=== PATIENT | female | born 1960 | race Caucasian/White ===

== ENCOUNTER 2016-04-03 03:45 | Inpatient (IN) | payer OTHER ==
[~2016-04-03] VITALS: Ht 162.6 cm; Wt 93.9 kg
[~2016-04-03 03:45] MED LIST: ACCUPRIL40 M1 PO; ASPIRIN EC81 M1 PO; CLARITIN10 M1 PO; DDAVP0.2 MG PO; DOMPERIDONE PO; GABAPENTIN300 M2 PO; LEXAPRO20 M1 PO; OMEPRAZOLE40 M1 PO; PRAVACHOL40 M1 PO; REQUIP0.25 MG PO; TOPAMAX100 M1 PO; TRAZODONE HCL50 M1 PO; TROSPIUM CHLORI20 M1 PO; VICTOZA 2-0.6 MG/0.1 SC; ZOFRAN4 M2 PO
--- NOTE | 2016-04-03 11:16 | Admission Core Measures ---
Admission Meds I reviewed the following Meds: Current Medications Sig/Carmelo Start time Last Medication Dose Stop Time Status Admin Acetaminophen 975 MG ONCE 04/03 0000 NR (Tylenol) 04/03 2358 Cefazolin Sodium 2,000 MG ONCE 04/03 0000 NR (Kefzol-Ancef Inj) 04/03 235 Desmopressin Acetate 0.2 MG DAILY 04/03 1000 AC (Ddavp 0.1MG Tab) Escitalopram Oxalate 20 MG QPM 04/03 2200 AC (Lexapro) Gabapentin 300 MG 1200 04/03 1200 AC (Neurontin) Gabapentin 600 MG BID 04/03 1000 AC (Neurontin) Lisinopril 40 MG DAILY 04/03 1000 AC (Prinivil) Loratadine 10 MG DAILY 04/03 1000 AC (Claritin) Omeprazole 40 MG DAILY AC 04/04 0700 AC (Prilosec) Oxycodone HCl 10 MG ONCE 04/03 0000 NR (Roxicodone) 04/03 2358 Pravastatin Sodium 40 MG 1700 04/03 1700 AC (Pravachol) Ropinirole HCl 0.25 MG DAILY 04/03 1000 AC (Requip 0.5MG) Ropivacaine 500 ML ONCE ONE 04/03 1130 AC (NAROPIN) 04/05 1329 ON-Q Ball 1 BAG Topiramate 150 MG BID 04/03 1000 AC (Topamax) Trazodone HCl 50 MG QPM 04/03 2200 AC (Desyrel) Acute Coronary Syndrome Inclusion Criteria ACS Diagnosis No Inpatient Core Measures LDL Reminder: If No, please order W/I first 24hr of stay Congestive Heart Failure Inclusion Criteria CHF Diagnosis No Cerebrovascular accident Inclusion Criteria CVA/TIA Diagnosis No Inpatient Core Measures Bedside Swallow Eval Reminder: If BSE failed, place ST order Antithrombotic Reminder: Order Antithrombotic Medication by end of day 2 Antithrombotic Reminder: Document Reason Antithrombotic Not ordered by end of day 2 AFIB/Flutter Reminder: If Present, add to problem list AFIB/Flutter Reminder: Order Anticoag Medication for pts with AFIB/Flutter Atherosclerosis Reminder: If Present, add to problem list LDL Reminder: If No, please order W/I first 24hr of stay PT Order Reminder: If No, please order Venous thromboembolism Inpatient Core Measures VTE Risk Factors: Age > 40, Surgery VTE Prophylaxis Ordered Inpt Mech & Pharm No Mech VTE prophylaxis d/t No contraindications No VTE Pharm Prophylaxis d/t No contraindications Inclusion Criteria - Per Current guidelines, there needs to be overlap - treatment for the first 5 days of Warfarin therapy. - Parenteral Anticoagulation (IV or SC) needs to be - given along with Warfarin therapy. VTE Diagnosis No VTE Type NONE VTE Confirmed by (Test) NONE Problem List As ranked by this Provider includes Assessment & Plan 1. Unilateral primary osteoarthritis, right knee HOME MEDS Home Med List Desmopressin Acetate (Ddavp) 0.2 MG TABLET 1 TAB PO DAILY BLADDER (Reported) [DOMPERIDONE] 10 MG PO 6XDAILY BLADDER (Reported) Escitalopram Oxalate (Lexapro) 20 MG TABLET 1 TAB PO QPM DEPRESSION (Reported ) Gabapentin 300 MG CAPSULE 2 CAP PO BID NEUROPATHY (Reported) Gabapentin 300 MG CAPSULE 1 CAP PO 1200 NEUROPATHY (Reported) Liraglutide (Victoza 2-Eduard) 0.6 MG/0.1 ML (18 MG/3 ML) PEN.INJCTR 1.2 MG SC QPM DM (Reported) Loratadine (Claritin) 10 MG TABLET 1 TAB PO DAILY ALLERGIES (Reported) Omeprazole 40 MG CAPSULE.DR 1 CAP PO DAILY GERD (Reported) Ondansetron HCl (Zofran) 4 MG TABLET 1 TAB PO PRN NAUSEA (Reported) Pravastatin Sodium (Pravachol) 40 MG TABLET 1 TAB PO DAILY CHOLESTEROL ( Reported) Quinapril HCl (Accupril) 40 MG TABLET 1 TAB PO DAILY BP (Reported) Ropinirole Hydrochloride (Requip) 0.25 MG TABLET 1 TAB PO DAILY LEGS ( Reported) Topiramate (Topamax) 100 MG TABLET 1.5 TAB PO BID UNKNOWN (Reported) Trazodone HCl 50 MG TABLET 1 TAB PO QPM SLEEP (Reported) Trospium Chloride 20 MG TABLET 1 TAB PO DAILY BLADDER (Reported) Discontinued Medications Aspirin (Ecotrin*) 81 MG TABLET.DR 1 TAB PO DAILY HEART/BLOOD (Reported) Discontinued reason: Changed Dose
[2016-04-03] MEDS ORDERED: DILAUDID4 M1 PO (11:21)
[2016-04-03] MEDS ORDERED: ASPIRIN325 M2 PO (11:21)
[2016-04-03] MEDS ORDERED: COLACE100 M1 PO (11:21)
[2016-04-03] MEDS ORDERED: MS CONTIN15 M2 PO (11:21)
[2016-04-03] MEDS ORDERED: MIRALAX17 G1 PO (11:21)
--- NOTE | 2016-04-03 11:24 | Patient Discharge Instructions ---
Discharge Instructions General Discharge Information You were seen/treated for: Right knee pain You had these procedures: Right total knee replacement Watch for these problems: Increasing pain, redness, warmth, swelling. Drainage of any type from incision. Inability to bear weight on right leg. Fever greater than 101.5. Do not soak the wound: Yes No bath, but you may shower: Yes Special Instructions: Incision: Dry dressing. May shower. No baths. No ointments of any kind. Ice as needed. Bowel regimen: Colace and/or Miralax. Weight-bearing as tolerated Follow-up with Dr. Brink in 6 weeks. Call office for fevers greater than 101.5, excessive drainage or inability to bear weight on operative extremity. Visiting nurse will change dressing. Diet Continue normal diet: Yes Recommended Diet: Heart Healthy Additional DIET Information: Advance as tolerated Activity Full Activity/No Limits: No Activity Self Limited: Yes Pounds, do NOT lift more than: 10 Additional ACTIVITY Info: Weight-bear as tolerated on right leg Acute Coronary Syndrome Inclusion Criteria At DC or during hospital stay patient has or had the following: ACS DIAGNOSIS No Discharge Core Measures Meds if any: Prescribed or Continued at Discharge Meds if any: NOT Prescribed or Continued at Discharge Congestive Heart Failure Inclusion Criteria At DC or during hospital stay patient has or had the following: CHF DIAGNOSIS No Discharge Core Measures Meds if any: Prescribed or Continued at Discharge Meds if any: NOT Prescribed or Continued at Discharge Cerebrovascular accident Inclusion Criteria At DC or during hospital stay patient has or had the following: CVA/TIA Diagnosis No Discharge Core Measures Meds if any: Prescribed or Continued at Discharge Meds if any: NOT Prescribed or Continued at Discharge Venous thromboembolism Inclusion Criteria VTE Diagnosis No VTE Type NONE VTE Confirmed by (Test) NONE Discharge Core Measures - Per Current guidelines, there needs to be overlap - treatment for the first 5 days of Warfarin therapy. - If discharged on Warfarin prior to 5 days of - overlap therapy, the patient will need to be - assessed for post discharge needs including - *Post discharge parental anticoagulation - *Warfarin and/or parental anticoagulation education - *Follow up date to check INR post discharge At least 5 days overlap therapy as Inpatient No Meds if any: Prescribed or Continued at Discharge Note: Overlap Therapy is Warfarin and Anticoagulant Meds if any: NOT Prescribed or Continued at Discharge
--- NOTE | 2016-04-03 11:26 | Surgical Discharge Summary ---
Visit Information Visit Dates Admission Date: 04/03/16 Discharge Date: 04/06/16 History of Present Illness Chief Complaint: Right knee pain Medical History Isolation History: Standard Surgical History Pertinent Surgical History: non-contributory Review of Systems: See H&P Hospital Course Course Attending Physician: ADINA MOORE MD Primary Care Physician: PATIENT HAS NO PRIMARY CARE DR Hospital Course: Patient was admitted to the hospital on 04/03/2016 for an elective right total knee replacement. She tolerated the procedure well. She was transferred to a general surgical floor. Her diet was advanced and tolerated. Her vital signs were stable and within normal limits. Her pain was well controlled. She was evaluated and treated by physical therapy. She voided spontaneously. She was deemed appropriate for discharge. Allergies: Coded Allergies: pentazocine (From TALWIN) (Severe, ANAPHYLAXIS 04/03/16) prochlorperazine (From COMPAZINE) (Severe, ANAPHYLAXIS 04/03/16) Disposition Summary Disposition Principal Diagnosis: Right knee unilateral primary osteoarthritis Additional Diagnosis: None Discharge Disposition: home health services Discharge Instructions General Discharge Information Code Status: Full Code Patient's Diet: Heart healthy, advance as tolerated Patient's Activity: Weight-bear as tolerated on right leg Follow-Up Instructions/Appts: Incision: Dry dressing. May shower. No baths. No ointments of any kind. Ice as needed. Bowel regimen: Colace and or MiraLAX Weight-bearing as tolerated Follow-up with Dr. Moore in 6 weeks. Call office for fevers greater than 101.5, excessive drainage or inability to bear weight on operative extremity. Visiting nurse will change dressing. Medications at Discharge Discharge Medications: Stop taking the following medications: Aspirin (Ecotrin*) 81 MG TABLET.DR HARDY DAILY Continue taking these medications: Quinapril HCl (Accupril) 40 MG TABLET 1 Tablet ORAL DAILY Comments: DOCUMENTED PER CMR DURING PRE-SX INTERVIEW Pravastatin Sodium (Pravachol) 40 MG TABLET 1 Tablet ORAL DAILY Comments: DOCUMENTED PER CMR DURING PRE-SX INTERVIEW Trazodone HCl (Trazodone HCl) 50 MG TABLET 1 Tablet ORAL Every night Comments: DOCUMENTED PER CMR DURING PRE-SX INTERVIEW Escitalopram Oxalate (Lexapro) 20 MG TABLET 1 Tablet ORAL Every night Comments: DOCUMENTED PER CMR DURING PRE-SX INTERVIEW Topiramate (Topamax) 100 MG TABLET 1.5 Tablet ORAL TWICE DAILY Comments: DOCUMENTED PER CMR DURING PRE-SX INTERVIEW [DOMPERIDONE] 10 Milligram ORAL 6XDAILY Comments: DOCUMENTED PER CMR DURING PRE-SX INTERVIEW Desmopressin Acetate (Ddavp) 0.2 MG TABLET 1 Tablet ORAL DAILY Comments: DOCUMENTED PER CMR DURING PRE-SX INTERVIEW Trospium Chloride (Trospium Chloride) 20 MG TABLET 1 Tablet ORAL DAILY Comments: DOCUMENTED PER CMR DURING PRE-SX INTERVIEW Omeprazole (Omeprazole) 40 MG CAPSULE.DR 1 Capsule ORAL DAILY Comments: DOCUMENTED PER CMR DURING PRE-SX INTERVIEW Ropinirole Hydrochloride (Requip) 0.25 MG TABLET 1 Tablet ORAL DAILY Comments: DOCUMENTED PER CMR DURING PRE-SX INTERVIEW Gabapentin (Gabapentin) 300 MG CAPSULE 2 Capsule ORAL TWICE DAILY Comments: DOCUMENTED PER CMR DURING PRE-SX INTERVIEW 2 IN AM/ 1 NOON/ 2 AT NIGHT Gabapentin (Gabapentin) 300 MG CAPSULE 1 Capsule ORAL 1200 Comments: DOCUMENTED PER CMR DURING PRE-SX INTERVIEW Loratadine (Claritin) 10 MG TABLET 1 Tablet ORAL DAILY Comments: DOCUMENTED PER CMR DURING PRE-SX INTERVIEW Liraglutide (Victoza 2-Eduard) 0.6 MG/0.1 ML (18 MG/3 ML) PEN.INJCTR 1.2 Milligram Inject into fatty tissue Every night Comments: DOCUMENTED PER CMR DURING PRE-SX INTERVIEW Ondansetron HCl (Zofran) 4 MG TABLET 1 Tablet ORAL as needed for NAUSEA Comments: DOCUMENTED PER CMR DURING PRE-SX INTERVIEW Start taking the following new medications: Aspirin (Aspirin*) 325 MG TABLET 1 Tablet ORAL TWICE DAILY Qty = 60 No Refills Docusate Sodium (Colace) 100 MG CAPSULE 1 Capsule ORAL TWICE DAILY Qty = 14 No Refills Polyethylene Glycol 3350 (Miralax) 17 GRAM POWD.PACK 1 Packet ORAL DAILY Qty = 7 No Refills Instructions: dissolve in water, DISCONTINUE USE IF YOU DEVELOP LOOSE STOOL OR DIARRHEA Hydromorphone HCl (Dilaudid) 2 MG TABLET 1-2 Tablet ORAL Q4-6HR as needed for PAIN Qty = 36 No Refills dissolve in water, DISCONTINUE USE IF YOU DEVELOP LOOSE STOOL OR DIARRHEA
--- NOTE | 2016-04-03 11:57 | PN- Orthopedic ---
Subjective Subjective: The patient was seen postoperatively. She denies any pain at the current time and has no other complaints. She denies any chest pain, difficulty breathing, or palpitations. Objective Vital Signs and I&Os Vital signs: Blood pressure 110/67, pulse 70, temperature 97.9, O2 sats are 97% on 2 L via nasal cannula. I's and O's: 1500 ML's in of lactated ringer/75 ML's out of urine via [place] catheter/Suretrans drain 45 ML's/EBL less than 50 Physical Exam: Gen.: Alert and in no obvious distress Skin: Warm and dry Cardiac: S1-S2 regular Pulmonary: Bilateral breath sounds are equal and decreased at bases Extremities: Bilateral lower extremities are warm without calf tenderness or significant edema. Gross motor and sensory are intact. Right knee surgical dressing is clean, dry, and intact without signs of infection. There is a Suretrans drain 1 holding suction with sanguinous drainage and bulb. There is an On-Q pain pump in place Assessment/Plan Assessment/Plan Assessment: 55-year-old female status post right total knee arthroplasty. Postoperative the patient is progressing as expected and her pain is under adequate control. Plan: Out of bed with physical therapy patient is weightbearing as tolerated Strict I's and O's Follow-up morning labs Start aspirin 305 mg by mouth twice a day tonight Keep Suretrans drain to self suction Advance diet as tolerated GI and DVT prophylaxis Resume home medications Monitor for postoperative void Core Measures/Miscellaneous Venous Thromboembolism VTE Risk Factors: Age > 40, Surgery VTE Contraindications: No Contraindications VTE Prophylaxis Ordered Inpt: Mech & Pharm VTE Diagnosis: No VTE Type: NONE VTE Confirmed by (Test): NONE Beta Wing Is Beta Wing a Home Med? No Antibiotics Is Patient on Antibiotics? Yes If Yes: prophylaxis
[2016-04-03] MEDS ORDERED: DILAUDID2 M1 PO (12:48)
[2016-04-03 13:00] VITALS: BP 118/78
--- NOTE | 2016-04-03 14:29 | Operative Report ---
Operative/Inv Procedure Report Surgery Date: 04/03/16 Name of Procedure: Right total knee replacement Pre-Operative Diagnosis: Primary right knee DJD Post-Operative Diagnosis: Same Estimated Blood Loss: 50ml to 100ml Surgeon/Crap Game Box Person: TERESA BAKER,ADINA Torres Anesthesia: block Operative/Procedure Note Note: Description of Procedure: The patient was taken to the operating room and positively identified. After induction of spinal anesthesia and administration of appropriate pre-operative antibiotics, the patient was positioned supine on the operating room table and all bony prominences were well padded. A well-padded pneumatic tourniquet was placed on the right upper thigh. After performing a surgical timeout, the right lower extremity was prepped and draped in the usual sterile fashion. After exsanguination with Esmarch the tourniquet was inflated to 250mm of mercury. A standard medial parapatellar approach was made to the knee. This was carried down through skin and subcutaneous tissue to the level of the fascia. Meticulous hemostasis was maintained with Bovie electrocautery. The extensor mechanism and patellar retinaculum were opened sharply and the patella was everted. The infrapatellar fat was resected in order to improve exposure. Osteophytes were trimmed from the patella and femoral condyles and the patella was re-everted and tucked laterally. A medial release was performed and the cruciate ligaments were resected. The tibia was then subluxed anteriorly. Utilizing the appropriate extra-medullary guide, the proximal tibia was trimmed perpendicular to the long axis of the tibial shaft. Attention was then turned to the femur. After opening the medullary canal, the distal femoral cut was made in 6 degrees of valgus utilizing the appropriate intra-medullary guide. The extension gap was checked and found to be appropriate. The femur was then sized and the remainder of the femoral cuts were made with a size 3 4-in-1 femoral cutting guide. The flexion gap was checked and found to be symmetric and appropriate. The knee was then trialed with a size 3 femoral component, a size 3 tibial component and a size 11 mm polyethylene insert. The patella was not resurfaced due to its excellent preoperative condition. This yielded excellent range of motion, stability and patellar tracking. All trial components were removed and the knee was copiously irrigated with sterile saline. All components were cemented into place with Sasha Simplex cement. All the components were of the Sasha Triathlon knee system of the above stated sizes. The knee was again irrigated after cementation. The extensor mechanism and patellar retinaculum were repaired using interrupted #1 vicryl suture. The skin was re-approximated with 2-0 vicryl and closed with kalin. A sterile dressing was applied, the tourniquet was deflated, the patient was awakened and taken to the recovery room in satisfactory condition.
[2016-04-03 15:00] VITALS: BP 120/68
[2016-04-03 17:04] VITALS: BP 120/82
[2016-04-03 19:35] VITALS: BP 108/68
[2016-04-03 22:54] VITALS: BP 104/60
[2016-04-04 03:11] VITALS: BP 100/50
[2016-04-04 07:33] VITALS: BP 100/60
--- NOTE | 2016-04-04 08:31 | PN- Orthopedic ---
Subjective Subjective: NAEO. Patient had increased pain around 23:00 after spinal anesthesia metabolized. Currently pain is "15/10". Denies numbness/tingling in RLE. Tolerating diet without n/v. +flatus, no BM. Ballard catheter in place. Denies CP/SOB. Objective Vital Signs and I&Os Vital Signs Date Time Temp Pulse Resp B/P Pulse O2 O2 Flow FiO2 Ox Delivery Rate 04/04 0817 100/60 04/04 0733 98.6 73 20 100/60 95 Room Air 04/04 0311 98.7 73 20 100/50 94 Room Air 04/03 2254 98.9 70 20 104/60 94 Room Air 04/03 1935 97.7 73 20 108/68 97 Room Air 04/03 1704 98.6 73 20 120/82 100 Room Air 04/03 1500 98.7 74 18 120/68 97 Room Air 04/03 1300 97.6 69 18 118/78 99 Nasal 3.0L Cannula Intake & Output 04/04 1600 04/04 0800 04/04 0000 04/03 1600 04/03 0800 04/03 0000 Intake Total 200 200 Output Total 590 1430 Balance -390 -1230 Intake, IV 100 100 Intake, Oral 100 100 Output, 140 180 Drainage Output, Urine 450 1250 Patient 207 lb Weight Physical Exam: General: NAD, comfortable, A&Ox3 Chest: CTAB. RRR. Abdomen: soft, nontender, nondistended. Ext: Right knee dressing c/d/i. 2 pillows underneath knee. hemovac drain in place. On q pump in place. No calve swelling/TTP, neurovascularly intact bilateral lower extremities Current Medications: Current Medications Sig/Carmelo Start time Last Medication Dose Route Stop Time Status Admin Acetaminophen 650 MG Q4P PRN 04/03 1300 AC PO Acetaminophen 975 MG ONCE 04/03 0000 DC PO 04/03 2359 Aspirin Buffered 325 MG BID 04/03 2200 AC 04/04 PO 0818 Cefazolin Sodium 2 GM IQ8 04/03 1600 DC 04/04 N/A 1 UNIT IV 04/04 0029 0100 Cefazolin Sodium 2,000 MG ONCE 04/03 0000 DC IV 04/03 2359 Desmopressin Acetate 0.2 MG DAILY 04/04 1000 AC PO Desmopressin Acetate 0.2 MG DAILY 04/03 1000 DC PO Dextrose/Sodium 1,000 ML .[id number] 04/03 1300 DC 04/03 Chloride IV 1438 Diphenhydramine HCl 50 MG .STK-MED ONE 04/03 1552 DC IM 04/03 1553 Diphenhydramine HCl 12.5 MG ONCE ONE 04/03 1545 DC 04/03 PO 04/03 1546 1707 Diphenhydramine HCl 25 MG Q6P PRN 04/03 1315 AC 04/03 PO 2309 Docusate Sodium 100 MG BID 04/03 2200 AC 04/04 PO 0819 Escitalopram Oxalate 20 MG QPM 04/03 2200 DC PO Escitalopram Oxalate 20 MG QPM 04/03 2200 AC 04/03 PO 2057 Gabapentin 300 MG 1200 04/04 1200 AC PO Gabapentin 600 MG BID 04/03 2200 AC 04/04 PO 0818 Gabapentin 300 MG 1200 04/03 1200 DC PO Gabapentin 600 MG BID 04/03 1000 DC PO Hydromorphone HCl 1 MG Q3P PRN 04/04 0830 UNVr IV Hydromorphone HCl 2 MG Q4P PRN 04/03 1300 AC PO Hydromorphone HCl 4 MG Q4P PRN 04/03 1300 AC 04/04 PO 0816 Insulin Human Regular 0 TIDAC/HS 04/03 1200 AC 04/04 SC 0819 Ketorolac 30 MG Q6P PRN 04/04 0830 UNVr Tromethamine IV 04/09 0831 Lisinopril 40 MG DAILY 04/04 1000 AC 04/04 PO 0817 Lisinopril 40 MG DAILY 04/03 1000 DC PO Loratadine 10 MG DAILY 04/04 1000 AC 04/04 PO 0819 Loratadine 10 MG DAILY 04/03 1000 DC PO Metoclopramide HCl 10 MG Q6P PRN 04/03 1300 AC IV Morphine Sulfate 2 MG Q2P PRN 04/03 1300 DC 04/04 IV 0603 Morphine Sulfate 10 MG .STK-MED ONE 04/03 0839 DC IV 04/03 0840 Omeprazole 40 MG DAILY AC 04/04 0700 DC PO Omeprazole 40 MG DAILY AC 04/04 0700 AC 04/04 PO 0605 Ondansetron HCl 4 MG Q6P PRN 04/03 1300 AC IV Oxycodone HCl 10 MG ONCE 04/03 0000 DC PO 04/03 2359 Polyethylene Glycol 17 GM DAILY 04/04 1000 AC 04/04 PO 0818 Pravastatin Sodium 40 MG 1700 04/03 1700 DC PO Pravastatin Sodium 40 MG 1700 04/03 1700 AC 04/03 PO 1709 Ropinirole HCl 0.25 MG DAILY 04/04 1000 AC 04/04 PO 0817 Ropinirole HCl 0.25 MG DAILY 04/03 1000 DC PO Ropivacaine 500 ML ONCE ONE 04/03 1130 AC 04/03 ON-Q Ball 1 BAG INJ 04/05 1329 1440 Topiramate 150 MG BID 04/03 2200 AC 04/03 PO 2057 Topiramate 150 MG BID 04/03 1000 DC PO Trazodone HCl 50 MG QPM 04/03 2200 DC PO Trazodone HCl 50 MG QPM 04/03 2200 AC 04/03 PO 2057 Results Last 48 Hours of Labs: Laboratory Tests 04/04 0750 Chemistry Sodium Pending Potassium Pending Chloride Pending Carbon Dioxide Pending Anion Gap Pending BUN Pending Creatinine Pending BUN/Creatinine Ratio Pending Hematology CBC w Diff Pending WBC Pending RBC Pending Hgb Pending Hct Pending MCV Pending MCH Pending RDW Pending Plt Count Pending MPV Pending PUBS MCHC Pending Assessment/Plan Assessment/Plan 55yo F POD#1 s/p right total knee replacement. Patient does not have good pain control at this time. Otherwise AVSS, patient stable. - DC ballard - optimize pain control - PRN zofran - Bowel regimen - DC IVF - Hemovac dc'd bedside, tolerated well - ASA 325mg PO BID - I/O's - ALPS and TEDS - OOB and ambulate with PT, WBAT - will d/w attending Core Measures/Miscellaneous Venous Thromboembolism VTE Risk Factors: Age > 40, Surgery VTE Contraindications: No Contraindications VTE Prophylaxis Ordered Inpt: Mech & Pharm VTE Diagnosis: No VTE Type: NONE VTE Confirmed by (Test): NONE Beta Wing Is Beta Wing a Home Med? No Antibiotics Is Patient on Antibiotics? No
[2016-04-04 09:02] LABS: ABSOLUTE BASOPHIL COUNT 0 /CUMM (0.0-0.2); ABSOLUTE EOSINOPHIL COUNT 0 /CUMM (0.0-0.7); ABSOLUTE GRANULOCYTE CT 4.4 /CUMM (1.4-6.5); ABSOLUTE MONOCYTE COUNT 0.7 /CUMM (0.10-0.60); BASOPHIL % 0.2 % (0.0-2.0); EOSINOPHIL % 0.5 % (0-5); GRANULOCYTE % 71.9 % (42.2-75.2); HEMATOCRIT 37.1 % (37-47); MEAN CORPUSCULAR HGB 32.5 PG (27.0-31.0); MEAN CORPUSCULAR HGB CONC 34.4 G/DL (33.0-37.0); MEAN CORPUSCULAR VOLUME 94.5 FL (81.0-99.0); MEAN PLATELET VOLUME 8.2 FL (7.4-10.4); PLATELET COUNT 187 /CUMM (130-400); RBC DISTRIBUTION WIDTH 13.7 % (11.5-14.5); RED BLOOD CELL CT 3.92 /CUMM (4.20-5.40); WHITE BLOOD CELL COUNT 6.1 /CUMM (4.8-10.8)
[2016-04-04 14:48] VITALS: BP 104/60
[2016-04-04 23:04] VITALS: BP 112/68
[2016-04-05 07:06] VITALS: BP 112/60
--- NOTE | 2016-04-05 09:41 | PN- Orthopedic ---
Subjective Subjective: POD#2 S/P RIGHT TKA NO MAJOR COMPLAINTS DENEIS CP, SOB, NO N+V WITH DIET TOLERATING DIET NO BM Objective Vital Signs and I&Os Vital Signs Date Time Temp Pulse Resp B/P Pulse O2 O2 Flow FiO2 Ox Delivery Rate 01/06 0806 112/60 /06 0706 100.2 75 20 112/60 90 Room Air / 2304 100.1 84 20 112/68 95 Room Air 04/04 1448 98.8 85 20 104/60 95 Room Air Intake & Output / 1600 01/ 0800 / 0000 / 1600 04/04 0800 04/04 0000 Intake Total 100 140 600 200 200 Output Total 650 674 248 8917 Balance -550 140 125 -390 -1230 Intake, IV 40 0 100 100 Intake, Oral 100 100 600 100 100 Number 0 Bowel Movements Output, 140 180 Drainage Output, Urine 650 384 269 5598 Physical Exam: CV: RRR LUNGS: CLEAR ABD: +BS, NT/ND EXT; DRSG CHANGED, WOUND C/D/I NO CALF TENDERNESS BILAT DISTAL CMS INTACT Assessment/Plan Assessment/Plan ORTHO STABLE PLAN OOB WITH PT/STAIRS HOME D/C PLANNING Core Measures/Miscellaneous Venous Thromboembolism VTE Risk Factors: Age > 40, Surgery VTE Contraindications: No Contraindications VTE Prophylaxis Ordered Inpt: Mech & Pharm VTE Diagnosis: No VTE Type: NONE VTE Confirmed by (Test): NONE Beta Wing Is Beta Wing a Home Med? No Antibiotics Is Patient on Antibiotics? No
--- NOTE | 2016-04-05 14:09 | NUR ---
Physical Therapy: attempted to see patient for treatment this afternoon. Pt currently refusing participation due to nausea and fatigue. Educated on importance of participation, pt continues to politely refuse. Will follow up as appropriate. Gerardo oliveira.
[2016-04-05 14:46] VITALS: BP 106/52
[2016-04-05 22:12] VITALS: BP 130/80
--- NOTE | 2016-04-06 00:25 | NUR ---
ALERT AND ORIENTED X 3. VITAL SIGNS STABLE. ON ROOM AIR. DRESSING TO R KNEE IS CLEAN, DRY, AND INTACT MEDICATION GIVEN FOR PAIN RESTING COMFORTABLY AT THIS TIME. WILL CONTINUE TO MONITOR
[2016-04-06 06:00] VITALS: BP 122/82
[2016-04-06 09:01] VITALS: BP 112/70
--- NOTE | 2016-04-06 10:29 | PN- Orthopedic ---
Subjective Subjective: POD #3 s/p R TKR. Resting comfortably in bed. No complaints of pain at present. Denies CP/SOB, N/V, F/C. Ambulating with PT. Voiding spontaneously. Objective Vital Signs and I&Os Vital Signs Date Time Temp Pulse Resp B/P Pulse O2 O2 Flow FiO2 Ox Delivery Rate 04/06 900 85 112/70 04/06 08 Room Air 04/06 599 98.8 78 20 122/82 94 Room Air 04/05 2212 99.9 85 18 130/80 93 Room Air 04/05 1446 100.5 81 18 106/52 90 Room Air Intake & Output 04/06 1600 04/06 0804/06 0000 04/05 1600 04/05 0000 Intake Total 360 960 600 100 140 Output Total 400 1200 500 475 650 Balance -400 -840 460 125 -550 140 Intake, IV 0 40 Intake, Oral 360 960 600 100 100 Number 1 1 Bowel Movements Output, Urine 400 1200 500 475 650 Physical Exam: Gen: AAOx3 in NAD Cor: S1+S2+ Lungs: CTA jonelle Abd: soft, NT, ND, +BS x4 Ext: trace edema only around incision. Calf non-tender. Palpable DP/PT pulse to right leg. Sensation/motor exam grossly intact. Incision C/D/I with kalin. No drainage noted. Ecchymosis noted around wound. Erythema noted at staple insertion sites. Current Medications: Current Medications Sig/Carmelo Start time Last Medication Dose Route Stop Time Status Admin Acetaminophen 650 MG Q4P PRN 04/03 1300 AC PO Aspirin Buffered 325 MG BID 04/03 2199 AC 04/06 PO 0900 Desmopressin Acetate 0.2 MG DAILY 04/04 1000 AC 04/06 PO 0859 Diphenhydramine HCl 25 MG Q6P PRN 04/03 1315 AC 04/03 PO 2309 Docusate Sodium 100 MG BID 04/03 2199 AC 04/06 PO 0900 Escitalopram Oxalate 20 MG QPM 04/03 220 AC 04/05 PO 2305 Gabapentin 300 MG 1200 04/04 1200 AC 04/05 PO 1411 Gabapentin 600 MG BID 04/030 AC 04/06 PO 0901 Hydromorphone HCl 1 MG Q3P PRN 04/04 0830 AC 04/05 IV 1346 Hydromorphone HCl 2 MG Q4P PRN 04/03 1300 AC 04/06 PO 0807 Hydromorphone HCl 4 MG Q4P PRN 04/03 1300 AC 04/04 PO 0816 Insulin Human Regular 0 TIDAC/HS 04/03 1200 AC 04/06 SC 0806 Ketorolac 30 MG Q6P PRN 04/04 0830 AC 04/04 Tromethamine IV 04/09 0831 0926 Lisinopril 40 MG DAILY 04/04 1000 AC 04/06 PO 0901 Loratadine 10 MG DAILY 04/04 1000 AC 04/06 PO 0900 Metoclopramide HCl 10 MG Q6P PRN 04/03 1300 AC IV Omeprazole 40 MG DAILY AC 04/04 0700 AC 04/06 PO 0552 Ondansetron HCl 4 MG Q6P PRN 04/03 1300 AC IV Patient Medication 1 ED .STK-MED ONE 04/05 1343 DC Teaching ED 04/05 1344 Polyethylene Glycol 17 GM DAILY 04/04 1000 AC 04/06 PO 0902 Pravastatin Sodium 40 MG 1700 04/03 1700 AC 04/05 PO 1650 Ropinirole HCl 0.25 MG DAILY 04/04 1000 AC 04/06 PO 0900 Ropivacaine 500 ML ONCE ONE 04/03 1130 DC 04/03 ON-Q Ball 1 BAG INJ 04/05 1329 1440 Topiramate 150 MG BID 04/03 2200 AC 04/06 PO 0858 Trazodone HCl 50 MG QPM 04/03 2200 AC 04/05 PO 2304 Assessment/Plan Assessment/Plan A: POD #3 s/p R TKR; AVSS. Plan: D/C home with services once cleared by PT (had issue with stairs yesterday) F/U Dr. Brink 6 weeks. Core Measures/Miscellaneous Venous Thromboembolism VTE Risk Factors: Age > 40, Surgery VTE Contraindications: No Contraindications VTE Prophylaxis Ordered Inpt: Mech & Pharm VTE Diagnosis: No VTE Type: NONE VTE Confirmed by (Test): NONE Beta Wing Is Beta Wing a Home Med? No Antibiotics Is Patient on Antibiotics? No
== END 2016-04-06 12:30 | disposition home health service (06) | DRG 470 ==
LOC: SDA 03:45 → 2NA 03:45 → SDA 07:00 → 2NA 12:24
PROVIDERS: Nurse Practitioner; ADMIT Orthopaedic Surgery
PROC: 0SRC0J9 Replacement of Right Knee Joint with Synthetic Substitute, Cemented, Open Approach (ICD-10-PCS; principal; 2016-04-03)
DX: M17.11 Unilateral primary osteoarthritis, right knee (principal); K31.84 Gastroparesis; E11.43 Type 2 diabetes mellitus with diabetic autonomic (poly)neuropathy; E66.9 Obesity, unspecified; Z68.35 Body mass index [BMI] 35.0-35.9, adult; I10 Essential (primary) hypertension; E11.9 Type 2 diabetes mellitus without complications; E83.119 Hemochromatosis, unspecified; M79.7 Fibromyalgia; G25.81 Restless legs syndrome; N32.81 Overactive bladder
CPT/HCPCS: 2NAP; 82436; 87086; 88305; 93005; 93010; 97001-GP; 97110-GO; 97116-GO; 97161-GP; 97530-GO; C1713; J0690; J1200; J1885; J2405; J2765; J2795; J7042